=== PATIENT | female | born 1955 | race Caucasian/White ===

== ENCOUNTER 2024-06-10 16:23 | Outpatient (CLI) | payer BC ==
[~2024-06-10] VITALS: Ht 162.6 cm; Wt 92.5 kg
[2024-06-10] MEDS: albuterol 2.5 MG/3 ML nebule NEB ONE (17:03)
[2024-06-10 17:06] VITALS: PULSE 60; RESP 16; O2SAT 98
[2024-06-10 17:22] VITALS: PULSE 63; RESP 16
== END 2024-06-10 23:59 | disposition home or self-care (01) ==
LOC: RT 16:23
PROVIDERS: ATTEND Student in an Organized Health Care Education/Training Program
DX: R94.2 Abnormal results of pulmonary function studies (principal); R06.02 Shortness of breath
CPT/HCPCS: 94060; 94760; J7030